=== PATIENT | female | born 1980 | race Caucasian/White ===

== ENCOUNTER 2017-11-15 11:26 | Emergency (ER) | payer MEDICAID ==
[2017-11-15] MEDS ORDERED: NS 1,000 ML IV ONE (13:56)
[2017-11-15] MEDS ORDERED: ONDANSETRON 4 MG/2 ML VIAL IVP ONE (13:56)
--- NOTE | 2017-11-15 14:00 | EDPHY ---
H & P Time Seen by Provider: 11/15/17 13:50 HPI/ROS: CHIEF COMPLAINT: Abdominal pain HISTORY OF PRESENT ILLNESS: The patient is a 37-year-old female presents emergency department with 3 days of lower abdominal pain. The patient states she has had a previous ovarian cyst and had her left ovary removed. Her pain today is similar. Her pain is bilateral. The right is slightly worse than the left. It does not radiate to her back. She has had urinary frequency but no dysuria or hematuria. No measured fever. No nausea or vomiting. No diarrhea. Patient still has an appetite. REVIEW OF SYSTEMS: My complete review of systems is negative except as mentioned in the HPI. Past Medical/Surgical History: Includes ovarian cyst,"psychiatric issues" Past surgical history: Left ovary removal Social history: Patient denies drugs or alcohol. Smoking Status: Never smoked Physical Exam: 36.3, 121/86, 88, 17, 97% on room air GENERAL: Well-appearing, in no acute distress, alert. HEENT: Eyes normal to inspection, normal pharynx, no signs of dehydration. NECK: No thyromegaly, no lymphadenopathy, supple. RESPIRATORY: Clear to auscultation bilaterally, no rales, rhonchi or wheezing. CVS: Regular rate and rhythm, no rubs, murmurs, or gallops. ABDOMEN: Soft, diffuse lower abdominal discomfort with no rebound or guarding, nondistended, no organomegaly. BACK: Normal to inspection, no CVA tenderness. SKIN: Normal color, no rash, warm, dry. No pallor. EXTREMITIES: No pedal edema, no calf tenderness, no Homans sign or cords, no joint swelling. NEURO/PSYCH: Alert and oriented x3, normal mood and affect, normal motor sensory exam. Constitutional: Initial Vital Signs Temperature (C) 36.3 C 11/15/17 11:53 Heart Rate 88 11/15/17 11:53 Respiratory Rate 17 11/15/17 11:53 Blood Pressure 121/86 H 11/15/17 11:53 O2 Sat (%) 97 11/15/17 11:53 O2 Delivery Mode Room Air Allergies/Adverse Reactions: No Known Allergies Allergy (Unverified 11/15/17 11:52) Home Medications: Medication Instructions Recorded NK [No Known Home Meds] 11/15/17 Medical Decision Making - Diagnostics Imaging Results: Imaging Impressions Abdomen CT 11/15/17 17:25 Impression: No CT findings for appendicitis. Mild constipation. Probable couple tiny nonobstructive calculi in the inferior pole of the left kidney. Results called and discussed with Dr. Jesusita Farmer on 11/15/2017, 17:55. ED Course/Re-evaluation: In the emergency department I discussed possible etiologies with the patient. I answered all her questions. IV was placed. Patient was given normal saline 1 L IV for hydration. She is given morphine 4 mg IV for pain and Zofran 4 mg IV for nausea. Laboratory studies and ultrasound were ordered. Patient's CBC was normal. Her chemistry panel and were pending. Ultrasound: Please refer the dictated report by Dr. Barriga. Patient is single ovary. Appeared normal. The appendix was not visualized. I discussed the results with the patient. She stated her pain had improved but she is still having right lower quadrant tenderness to palpation on repeat exam. There is no rebound or guarding. I recommended further imaging because her appendix was not viewed. She consented to CT imaging. CT of the abdomen pelvis: Please refer the dictated report by Dr. Maverick Barriga. No acute disease noted. On recheck the patient was doing well. She had no new complaints. Her abdomen was soft, nontender nondistended. I discussed the results with the patient. I answered all her questions. She is given warnings prior to leaving. She will return with worsening symptoms. Differential Diagnosis: My differential includes but is not limited to appendicitis, ovarian cyst, ovarian torsion, PID, tubo-ovarian abscess, , ectopic , electrolyte abnormality, sugar abnormality, small-bowel obstruction, perforation , urinary tract infection, pyelonephritis - Data Points Laboratory Results: Laboratory Results 11/15/17 15:05 11/15/17 15:05 11/15/17 11/15/17 11/15/17 15:05 15:05 15:05 WBC 8.03 10^3/uL 10^3/uL (3.80-9.50) RBC 4.34 10^6/uL 10^6/uL (4.18-5.33) Hgb 14.3 g/dL g/dL (12.6-16.3) Hct 40.9 % % (38.0-47.0) MCV 94.2 fL fL (81.5-99.8) MCH 32.9 pg pg (27.9-34.1) MCHC 35.0 g/dL g/dL (32.4-36.7) RDW 12.8 % % (11.5-15.2) Plt Count 255 10^3/uL 10^3/uL (150-400) MPV 10.4 fL fL (8.7-11.7) Neut % (Auto) 48.7 % % (39.3-74.2) Lymph % (Auto) 42.8 % % (15.0-45.0) Lynn % (Auto) 7.2 % % (4.5-13.0) Eos % (Auto) 0.7 % % (0.6-7.6) Baso % (Auto) 0.5 % % (0.3-1.7) Nucleat RBC Rel Count 0.0 % % (0.0-0.2) Absolute Neuts (auto) 3.90 10^3/uL 10^3/uL (1.70-6.50) Absolute Lymphs (auto) 3.44 10^3/uL H 10^3/uL (1.00-3.00) Absolute Monos (auto) 0.58 10^3/uL 10^3/uL (0.30-0.80) Absolute Eos (auto) 0.06 10^3/uL 10^3/uL (0.03-0.40) Absolute Basos (auto) 0.04 10^3/uL 10^3/uL (0.02-0.10) Absolute Nucleated RBC 0.00 10^3/uL 10^3/uL (0-0.01) Immature Gran % 0.1 % % (0.0-1.1) Immature Gran # 0.01 10^3/uL 10^3/uL (0.00-0.10) Sodium 141 mEq/L mEq/L (135-145) Potassium 4.1 mEq/L mEq/L (3.5-5.2) Chloride 106 mEq/L mEq/L (97-110) Carbon Dioxide 24 mEq/l mEq/l (22-31) Anion Gap 11 mEq/L mEq/L (8-16) BUN 17 mg/dL mg/dL (7-23) Creatinine 0.7 mg/dL mg/dL (0.6-1.0) Estimated GFR > 60 Glucose 81 mg/dL mg/dL (70-100) Calcium 9.5 mg/dL mg/dL (8.5-10.4) Total Bilirubin 0.6 mg/dL mg/dL (0.1-1.4) Conjugated Bilirubin 0.3 mg/dL mg/dL (0.0-0.5) Unconjugated Bilirubin 0.3 mg/dL mg/dL (0.0-1.1) AST 33 IU/L IU/L (14-46) ALT 43 IU/L IU/L (9-52) Alkaline Phosphatase 68 IU/L IU/L (38-126) Total Protein 7.7 g/dL g/dL (6.3-8.2) Albumin 4.3 g/dL g/dL (3.5-5.0) Lipase 159 IU/L IU/L (23-300) Beta HCG, Qual NEGATIVE Medications Given: Discontinued Medications Sodium Chloride (Ns) 1,000 mls @ 0 mls/hr IV EDNOW ONE; Wide Open PRN Reason: Protocol Stop: 11/15/17 13:57 Last Admin: 11/15/17 15:16 Dose: 1,000 mls Morphine Sulfate (Morphine) 4 mg IVP EDNOW ONE Stop: 11/15/17 13:57 Last Admin: 11/15/17 15:17 Dose: 4 mg Ondansetron HCl (Zofran) 4 mg IVP EDNOW ONE Stop: 11/15/17 13:57 Last Admin: 11/15/17 15:17 Dose: 4 mg Departure - Departure Disposition: Home, Routine, Self-Care Clinical Impression: Abdominal pain Qualifiers: Abdominal location: lower abdomen, unspecified Qualified Code(s): R10.30 - Lower abdominal pain, unspecified Condition: Good Instructions: Acute Abdominal Pain (ED) Additional Instructions: Return with increasing pain, vomiting, fever or any other concerns. Referrals: Yareli Huston MD [Medical Doctor] - 5-7 days, call for appt.
[2017-11-15 15:13] LABS: PLATELET COUNT 255 10^3/uL (150-400)
[2017-11-15 16:50] VITALS: RESP 18
[2017-11-15] MEDS ORDERED: IOPAMIDOL (ISOVUE-300) 100 ML BTL ONE (17:28)
[2017-11-15 18:27] VITALS: BP 121/88; PULSE 84; TEMP 97.7; O2SAT 96
== END 2017-11-15 18:25 | disposition home or self-care (01) ==
DX: R10.30 Lower abdominal pain, unspecified (principal); E86.9 Volume depletion, unspecified
CPT/HCPCS: 96374; J2270; J2405; Q9967

== ENCOUNTER 2017-11-30 19:25 | Emergency (ER) | payer MEDICAID ==
[2017-11-30 19:29] VITALS: TEMP 97.7
--- NOTE | 2017-11-30 19:35 | EDPHY ---
H & P Time Seen by Provider: 11/30/17 19:31 HPI/ROS: CHIEF COMPLAINT: Right wrist pain post foosh HISTORY OF PRESENT ILLNESS: 37-year-old [id number] female complaining of acute right distal radius pain after she fell on her outstretched right hand shortly prior to arrival. Intact skin. No proximal pain or injury. No elbow pain. Reproducible pain with range of motion. No bleeding. This was a mechanical incident PHYSICAL EXAM (Prior to examination, patient consented to physical exam, hands were washed and my usual and customary physical exam procedures followed) 1) GENERAL: Well-developed, well-nourished, alert and oriented. Appears uncomfortable 2) HEAD: Normocephalic 3) HEENT: Pupils equal, round, reactive to light bilaterally. 4) LUNGS: Breathing comfortably. 5) MUSCULOSKELETAL: Soft compartments. No deformity. Tender to palpation distal radius Normal coloration. 6) SKIN: Intact 7) VASCULAR: pulses and cap refill present are brisk 8) NEUROLOGIC: Radial, ulnar, median nerve function intact with no deficits appreciated on exam DIFFERENTIAL DIAGNOSIS: in no particular order including but not limited to fracture, sprain, compartment syndrome Procedure: Splint A Velcro volar splint was applied by ER termite control technician. After application of the splint I returned and re-examined the patient. The splint was adequately immobilizing the joint and distal to the splint the patient's circulation and sensation were intact. Patient shows no signs of compartment syndrome. Was given orthopedic precautions. 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 Images reviewed myself ED Course/Re-evaluation: Patient was re-evaluated with serial examinations was recently at 8:12 p.m.. We discussed her imaging results showing no definitive acute osseous abnormality. She has been informed that occult fracture is not ruled out. Stressed the importance of follow-up with Orthopedics and given this referral information. She has been splinted. Usual and customary orthopedic precautions and instructions provided. She has no evidence of neurovascular compromise or compartment syndrome at this time. She feels comfortable being discharged. Care of patient under supervision of secondary supervising physician Dr Waggoner. - Depart Disposition: Home, Routine, Self-Care Clinical Impression: Right wrist sprain Qualifiers: Encounter type: initial encounter Qualified Code(s): S63.501A - Unspecified sprain of right wrist, initial encounter Condition: Good Instructions: Wrist Sprain (ED), Hydrocodone/Acetaminophen (By mouth) Additional Instructions: Return to the ER immediately if you experience discoloration, have worsening pain, numbness, tingling, or any other symptoms that concern you. If you received x-rays in the emergency department today, be advised, that ligamentous , tendon, muscular, and other non-bony injury cannot be fully ruled out. Try to keep your affected extremity elevated above the level of your chest, and keep cold packs on the affected area, for the next 48 hours. Referrals: Matthias Simmons MD [Medical Doctor] - As per Instructions
[2017-11-30] MEDS ORDERED: HYDROCOD/APAP 5/325 PREPACK#6 BTL TAKEHOME ONE (20:14)
[2017-11-30 20:20] VITALS: BP 120/81; PULSE 82; RESP 18; O2SAT 92
== END 2017-11-30 20:27 | disposition home or self-care (01) ==
DX: S63.501A Unspecified sprain of right wrist, initial encounter (principal); F17.200 Nicotine dependence, unspecified, uncomplicated; W01.0XXA Fall on same level from slipping, tripping and stumbling without subsequent striking against object, initial encounter
CPT/HCPCS: L3908

== ENCOUNTER 2017-12-16 12:33 | Emergency (ER) | payer MEDICAID ==
[2017-12-16] MEDS ORDERED: KETOROLAC 30 MG/1 ML SDV IM ONE (12:58)
--- NOTE | 2017-12-16 13:01 | EDPHY ---
H & P Stated Complaint: cough ST Time Seen by Provider: 12/16/17 12:53 HPI/ROS: CHIEF COMPLAINT: Sore throat, cough, body aches HISTORY OF PRESENT ILLNESS: Patient is a 37-year-old female who complains that she has had a sore throat, cough body aches for the last 3 days. It began with a dry cough. She has no history of pulmonary disease. She states that she had a fever yesterday subjectively. No nausea vomiting or GI symptoms. No urinary symptoms. She complains of muscle pain in her neck back arms and legs. She has a mild headache but states that this is not the primary problem. No vision or hearing changes. She has been able to orally hydrate. She did not get a flu vaccine. REVIEW OF SYSTEMS: Constitutional: See HPI EENTM: See HPI Respiratory: See HPI Cardiac: denies: chest pain, irregular heart rate, lightheadedness, palpitations Gastrointestinal/Abdominal: denies: abdominal pain, diarrhea, nausea, vomiting, blood streaked stools Genitourinary: denies: dysuria, frequency, hematuria, pain Musculoskeletal: See HPI Skin: denies: lesions, rash, jaundice, bruising Neurological: denies: headache, numbness, paresthesia, tingling, dizziness, weakness Hematologic/Lymphatic: denies: blood clots, easy bleeding, easy bruising Immunologic/allergic: denies: HIV/AIDS, transplant EXAM: GENERAL: Well-appearing, well-nourished and in no acute distress. HEAD: Atraumatic, normocephalic. EYES: Pupils equal round and reactive to light, extraocular movements intact, sclera anicteric, conjunctiva are normal. ENT: TMs normal, sinus congestion, oropharynx clear without exudates but mild erythema. Moist mucous membranes. NECK: Normal range of motion, supple without lymphadenopathy or JVD. LUNGS: Breath sounds clear to auscultation bilaterally and equal. No wheezes rales or rhonchi. HEART: Regular rate and rhythm without murmurs, rubs or gallops. ABDOMEN: Soft, nontender, normoactive bowel sounds. No guarding, no rebound. No masses appreciated. BACK: No CVA tenderness, no spinal tenderness, step-offs or deformities EXTREMITIES: Normal range of motion, no pitting or edema. No clubbing or cyanosis. NEUROLOGICAL: Cranial nerves II through XII grossly intact. Normal speech, normal gait. 5/5 strength, normal movement in all extremities, normal sensation PSYCH: Normal mood, normal affect. SKIN: Warm, dry, normal turgor, no visible rashes or lesions. Source: Patient Exam Limitations: No limitations - Personal History LMP (Females 10-55): Irregular Current Tetanus/Diphtheria Vaccine: Yes Current Tetanus Diphtheria and Acellular Pertussis (TDAP): Yes - Medical/Surgical History Hx Asthma: No Hx Chronic Respiratory Disease: No Hx Diabetes: No Hx Cardiac Disease: No Hx Renal Disease: No Hx Cirrhosis: No Hx Alcoholism: No Hx HIV/AIDS: No Hx Splenectomy or Spleen Trauma: No Other PMH: back prob/psych issues, right ovary removed - Family History Significant Family History: No pertinent family hx - Social History Smoking Status: Current every day smoker Alcohol Use: Sober Drug Use: None Constitutional: Initial Vital Signs Temperature (C) 36.8 C 12/16/17 12:40 Heart Rate 104 H 12/16/17 12:40 Respiratory Rate 16 12/16/17 12:40 Blood Pressure 105/71 12/16/17 12:40 O2 Sat (%) 87 L 12/16/17 12:40 O2 Delivery Mode Room Air Allergies/Adverse Reactions: No Known Allergies Allergy (Verified 12/16/17 12:39) Home Medications: Medication Instructions Recorded Gabapentin 11/30/17 Robaxin 500 mg (*) 11/30/17 Promethazine HCl/Codeine 5 ml PO Q4-6PRN PRN #90 ml 12/16/17 [Prometh-Codein 6.25-10 mg/5 ml] traMADol 12/16/17 Medical Decision Making ED Course/Re-evaluation: We discussed the patient's lab results. She is feeling somewhat better. She declines lab workup further workup. She wants to rest and hydrate at home. She would like a prescription cough syrup. Her heart rate is improved Differential Diagnosis: Partial list of the Differential diagnosis considered include but were not limited to; chest throat, influenza, viral syndrome and although unlikely based on the history and physical exam, I also considered sepsis, meningitis. I discussed these differential diagnoses and the plan with the patient as well as the usual and expected course. The patient understands that the diagnosis is provisional and that in medicine we are not always correct and that further workup is often warranted. Usual and customary warnings were given. All of the patient's questions were answered. The patient was instructed to return to the emergency department should the symptoms at all worsen or return, otherwise to followup with the physician as we discussed. - Data Points Medications Given: Discontinued Medications Ketorolac Tromethamine (Toradol) 60 mg IM EDNOW ONE Stop: 12/16/17 12:59 Last Admin: 12/16/17 13:10 Dose: 60 mg Departure - Departure Disposition: Home, Routine, Self-Care Clinical Impression: Acute viral syndrome Condition: Fair Instructions: Viral Syndrome (ED) Referrals: IZZY ALMONTE [Other] - As per Instructions Prescriptions: Promethazine HCl/Codeine [Prometh-Codein 6.25-10 mg/5 ml] 5 ml PO Q4-6PRN PRN # 90 ml PRN Reason: Cough, Moderate
[2017-12-16 14:46] VITALS: BP 113/73
== END 2017-12-16 14:46 | disposition home or self-care (01) ==
DX: B34.9 Viral infection, unspecified (principal); F17.200 Nicotine dependence, unspecified, uncomplicated
CPT/HCPCS: J1885

== ENCOUNTER 2017-12-25 10:05 | Emergency (ER) | payer MEDICAID ==
--- NOTE | 2017-12-25 10:18 | EDPHY ---
H & P Time Seen by Provider: 12/25/17 10:13 HPI/ROS: Chief complaint. Knee injury HPI. 37-year-old female presents emergency department left knee injury. She struck her left knee on a gate last evening. Complains of continued pain and slight swelling to the knee. No other injuries. No history of knee problems. Hurts to walk on. ROS Constitutional. no fever/chills, no weakness Eyes. no problems with vision ENT. no sore throat, no nasal drainage Cardiovascular. no chest pain Respiratory. no shortness of breath, no cough Abdominal. no abdominal pain, no nausea/vomiting, no diarrhea . no problems urinating MS. Left knee pain Skin. no rash Lymph. no swollen glands Neuro. no headache, no dizziness, no difficulty walking or with speech Past Medical/Surgical History: Back pain, oophorectomy, psychiatric issues. Visits to the ED November 15, November 30, December 16, December 25 Social History: Single, daily smoker, no alcohol Smoking Status: Heavy smoker Physical Exam: General Appearance: Alert pleasant well-developed female mild distress vital signs are stable. Eyes: Pupils equal and round no pallor or injection. ENT, Mouth: Mucous membranes are moist. Respiratory: There are no retractions, lungs are clear to auscultation. Cardiovascular: Regular rate and rhythm. Gastrointestinal: Abdomen is soft and nontender, no masses, bowel sounds normal. Neurological: Awake and alert, sensory and motor exams grossly normal. Skin: Warm and dry, no rashes. Musculoskeletal: Neck is supple nontender. Extremities tenderness to palpation of the patella left side. No deformity. No significant swelling. No joint line tenderness no instability to stress Psychiatric: Patient is oriented X 3, there is no agitation. Constitutional: Initial Vital Signs Temperature (C) 36.7 C 12/25/17 10:09 Heart Rate 98 12/25/17 10:09 Respiratory Rate 20 12/25/17 10:09 Blood Pressure 124/84 H 12/25/17 10:09 O2 Sat (%) 93 12/25/17 10:09 O2 Delivery Mode Room Air Allergies/Adverse Reactions: No Known Allergies Allergy (Verified 12/25/17 10:14) Home Medications: Medication Instructions Recorded Gabapentin 11/30/17 Robaxin 500 mg (*) 11/30/17 traMADol 12/16/17 Hydrocodone/APAP 5/325 [[place] 1 each PO Q4-6PRN PRN #7 tab 12/25/17 5/325 (*)] Medical Decision Making - Diagnostics Imaging Results: X-ray of the left knee interpreted by me is negative for fracture dislocation Procedures: Jt bandage applied to the left knee ED Course/Re-evaluation: Re-evaluation at 11:00 a.m.. Patient and I discussed imaging study results, treatment plan, criteria for return importance of follow-up and further evaluation. She expresses understanding And agreement. Patient tells me that Tylenol, ibuprofen, tramadol are not working. We will give the patient a short course of medication Differential Diagnosis: I considered fracture, dislocation, contusion Departure - Departure Disposition: Home, Routine, Self-Care Clinical Impression: Knee contusion Qualifiers: Encounter type: initial encounter Laterality: left Qualified Code(s): S80.02XA - Contusion of left knee, initial encounter Condition: Good Instructions: Contusion in Adults (ED) Additional Instructions: Ice and elevation next 24-48 hours. Ibuprofen 600 mg every 6 hr. Hydrocodone in addition if needed for pain. When finished with the hydrocodone use Tylenol, ibuprofen, tramadol for discomfort Jt bandage on for the next 3 days. Activity as tolerated. Return for worsening symptoms. Follow up in 3-4 days if not improved Referrals: NONE *PRIMARY CARE P,. [Primary Care Provider] - As per Instructions Prescriptions: Hydrocodone/APAP 5/325 [[place] 5/325 (*)] 1 each PO Q4-6PRN PRN #7 tab PRN Reason: Pain, Moderate
[2017-12-25 11:23] VITALS: BP 100/79
== END 2017-12-25 11:26 | disposition home or self-care (01) ==
LOC: CED 10:05
DX: S80.02XA Contusion of left knee, initial encounter (principal); F17.200 Nicotine dependence, unspecified, uncomplicated; W22.8XXA Striking against or struck by other objects, initial encounter
CPT/HCPCS: 73564-PO

== ENCOUNTER 2018-01-10 08:49 | Emergency (ER) | payer MEDICAID ==
[2018-01-10 09:04] VITALS: BP 106/74
--- NOTE | 2018-01-10 09:30 | EDPHY ---
H & P Stated Complaint: cast to RFA changed 1 wk ago;pain/numbness x1 day;wants cast off;CMS+ Time Seen by Provider: 01/10/18 09:29 HPI/ROS: HPI: This is a 37-year-old female who presents with Chief Complaint: cast to RFA changed 1 wk ago;pain/numbness x1 day;wants cast off;CMS+ Location: Right wrist Quality: Injury Duration: 6 weeks ago Signs and Symptoms: No bleeding, no radiation, no numbness, no weakness, no tingling, no incontinence, no decreased range of motion, no swelling, no pain, no fever Timing: Daily Severity: Mild Context: Patient is right-hand dominant, reports approximately 5 and have to 6 weeks ago she fell and landed directly on her right wrist. She reports that she sustained a fracture to the radial aspect of her wrist. Unsure of the exact injury diagnosis. Patient reports that she was initially put in a splint. She then went to an sales administration specialist in [place] 2 weeks ago. She is originally from [place], [place] and her father lives there now. Patient reports that she was placed in a cast at that time. She is complaining of the cast being extremely uncomfortable and causing her to feel claustrophobia. She reports that she has generalized anxiety and the cast is making things worse. She denies any paresthesias/weakness/pain/decreased range of motion. Modifying Factors: cast Comment: ROS: see HPI Constitutional: No fever, no chills, no weight loss Eyes: No blurred vision Respiratory: No shortness of breath, no cough Cardiovascular: No chest pain Gastrointestinal: No nausea, no vomiting no diarrhea Genitourinary: No dysuria Extremities: No myalgias Neurologic: No weakness, no numbness Skin: No rashes Hematologic: No bruising, no bleeding MEDICAL/SURGICAL/SOCIAL HISTORY: Medical/surgical history: back prob/psych issues, right ovary removed Social history: Employed CONSTITUTIONAL: Extremely anxious adult white female, awake and alert, no obvious distress HEENT: Atraumatic and normocephalic. NECK: supple, no midline tenderness, flexion 45 degrees, extension 45 degrees, right and left lateral flexion 45 degrees. No meningismus. Cardiovascular: Normal S1/S2, regular rate, regular rhythm, without murmur rub or gallop. PULMONARY/CHEST: Symmetrical and nontender. no crepitus. Clear to auscultation bilaterally. Good air movement. No accessory muscle usage. ABDOMEN: Soft, nondistended, nontender, no ecchymosis. PELVIC: no pain with rocking; bilateral hips flexion 125 degrees, extension 30 degrees, with no pain internal rotation and no pain external rotation. BACK: No midline tenderness, no paraspinous spasm, deep tendon reflexes 2/2, no pain with straight leg raise, No foot drop. Achilles reflexes are equal bilaterally. Able to walk on heels and toes without difficulty. EXTREMITIES: 2/2 pulses, strength 5/5, right WRIST: Extension to 70, flexion to 80, radial deviation to 20 degree, ulnar deviation to 30, no scaphoid tenderness, no tenderness over ulnar styloid, no tenderness over radial styloid. DIP/PIP/MCP flexion/extension intact with good light touch sensation. no deformities, no clubbing, no cyanosis or edema. NEUROLOGICAL: no focal neuro deficits. GCS 15. Light touch sensation intact. SKIN: Warm and dry, no erythema. no rash. Good capillary refill. Source: Patient Exam Limitations: No limitations - Personal History LMP (Females 10-55): Irregular Current Tetanus Diphtheria and Acellular Pertussis (TDAP): Yes - Medical/Surgical History Hx Asthma: No Hx Chronic Respiratory Disease: No Hx Diabetes: No Hx Cardiac Disease: No Hx Renal Disease: No Hx Cirrhosis: No Hx Alcoholism: No Hx HIV/AIDS: No Hx Splenectomy or Spleen Trauma: No Other PMH: back prob/psych issues, right ovary removed - Social History Smoking Status: Heavy smoker Constitutional: Initial Vital Signs Heart Rate 90 01/10/18 09:01 Respiratory Rate 18 01/10/18 09:01 Blood Pressure 106/74 01/10/18 09:01 O2 Sat (%) 97 01/10/18 09:01 O2 Delivery Mode Room Air Allergies/Adverse Reactions: No Known Allergies Allergy (Verified 01/10/18 09:00) Home Medications: Medication Instructions Recorded Gabapentin 11/30/17 Medical Decision Making Procedures: Procedure: Cast removal. After a physical exam was performed right thumb spica cast was removed using the cast cutter. The indication of the procedure was patient request. The procedure was performed with a cast cutter. The patient tolerated the procedure well. The procedure was performed by myself. ED Course/Re-evaluation: PO Ativan 1 mg given as patient having a mild panic attack upon arrival cast removed without any complications Right wrist x-ray ordered 1037: X-ray tech went into room and patient no longer in the room. Patient did not receive wrist splint or x-rays. Patient eloped from the emergency room. No signs of neurovascular compromise/tenting of skin/compartment syndrome/ extremities and joints examined above and below area of concern and are neurovascularly intact. This patient was seen under the supervision of my secondary supervising physician. I evaluated care for this patient independently. Differential Diagnosis: Differential diagnosis includes but is not limited to scaphoid fracture, radial fracture, ulnar fracture, nerve injury, tendon injury. - Data Points Medications Given: Discontinued Medications Lorazepam (Ativan) 1 mg PO EDNOW ONE Stop: 01/10/18 09:34 Last Admin: 01/10/18 09:35 Dose: 1 mg Departure - Departure Disposition: Home, Routine, Self-Care Clinical Impression: Injury of right wrist Qualifiers: Encounter type: subsequent encounter Qualified Code(s): S69.91XD - Unspecified injury of right wrist, hand and finger(s), subsequent encounter Fracture of scaphoid bone of right wrist Qualifiers: Encounter type: subsequent encounter Scaphoid bone location: unspecified portion of scaphoid Fracture type: closed Fracture alignment: nondisplaced Fracture healing: with routine healing Qualified Code(s): S62.001D - Unspecified fracture of navicular [scaphoid] bone of right wrist, subsequent encounter for fracture with routine healing Condition: Good Instructions: Wrist Fracture in Adults (ED), Scaphoid Fracture (ED) Additional Instructions: Take Tylenol 650 mg every 4 hours and/or Ibuprofen 600 mg every 8 hours with food as needed for pain. Return to the ER immediately if you experience new or worsening pain, discoloration, numbness, tingling, or any other symptoms that concern you. Referrals: [facility],. [Clinic] - Follow Up Only If Needed
[2018-01-10] MEDS ORDERED: LORazepam 1 MG TAB PO ONE (09:33)
== END 2018-01-10 10:38 | disposition left against medical advice (07) ==
DX: S62.001D Unspecified fracture of navicular [scaphoid] bone of right wrist, subsequent encounter for fracture with routine healing (principal); F17.200 Nicotine dependence, unspecified, uncomplicated; W18.39XD Other fall on same level, subsequent encounter

== ENCOUNTER 2018-01-25 11:45 | Emergency (ER) | payer MEDICAID ==
[2018-01-25 11:57] VITALS: BP 112/68
--- NOTE | 2018-01-25 12:39 | EDPHY ---
H & P Time Seen by Provider: 01/25/18 11:54 HPI/ROS: CHIEF COMPLAINT: Ft pain HISTORY OF PRESENT ILLNESS: Patient states she tripped over a metal chair about 2 hr ago. The foot of the chair impacted the top of her right foot causing pain. She did not fall otherwise. She states she has put ice on it and used ibuprofen but it still hurts. No other injuries described. REVIEW OF SYSTEMS: Negative except per HPI. General Appearance: Alert, no distress. Eyes: Pupils equal and round no icterus Respiratory: No respiratory distress Neurological: Awake, alert, no focal deficits. Skin: Warm and dry, no rashes. Musculoskeletal: Neck is supple nontender. Extremities are symmetrical, full range of motion, no edema. Right foot with contusion to the dorsal mid foot. Distal intact. Psychiatric: Patient is oriented X 3, there is no agitation. Medical/surgical history: History of sciatica. Social history: Smokes tobacco, denies ETOH or drugs. Smoking Status: Heavy smoker Constitutional: Initial Vital Signs Temperature (C) 36.5 C 01/25/18 11:52 Heart Rate 80 01/25/18 11:52 Respiratory Rate 16 01/25/18 11:52 Blood Pressure 112/68 01/25/18 11:52 O2 Sat (%) 94 01/25/18 11:52 O2 Delivery Mode Room Air Allergies/Adverse Reactions: No Known Allergies Allergy (Verified 01/25/18 11:54) Home Medications: Medication Instructions Recorded Gabapentin 11/30/17 Medical Decision Making - Diagnostics Imaging Results: Imaging Impressions Foot X-Ray 01/25/18 11:57 Impression: Negative right foot radiographs. Imaging: I viewed and interpreted images myself Differential Diagnosis: Differential diagnosis includes but is not limited to fracture, dislocation, contusion, laceration. After evaluation found have foot contusion without evidence of fracture or other more serious injury. Discussed ice and ibuprofen. Patient was asking for other analgesic medications but this was denied. Orthopedic follow-up information given. Stable for discharge. Departure - Departure Disposition: Home, Routine, Self-Care Clinical Impression: Foot contusion Qualifiers: Encounter type: initial encounter Laterality: right Qualified Code(s): S90.31XA - Contusion of right foot, initial encounter Condition: Good Instructions: Foot Contusion (ED) Additional Instructions: Use ice as much as you can for the next 48 hr. Ibuprofen or Tylenol for pain. Avoid painful activity. Follow up with primary care as needed. Referrals: NONE *PRIMARY CARE P,. [Primary Care Provider] - As per Instructions Darío Lucas MD [Medical Doctor] - As per Instructions
== END 2018-01-25 12:50 | disposition home or self-care (01) ==
LOC: CED 11:45
DX: S90.31XA Contusion of right foot, initial encounter (principal); F17.200 Nicotine dependence, unspecified, uncomplicated; W18.41XA Slipping, tripping and stumbling without falling due to stepping on object, initial encounter
CPT/HCPCS: 73630-PO